=== PATIENT | female | born 1935 | race African-American/Black ===

== ENCOUNTER 2017-06-21 05:19 | Inpatient (IN) ==
[~2017-06-21 05:19] MED LIST: VANCOMYCIN INJ 1,000 MG in SODIUM CHLORIDE 0.9% 250 ML IV ONE
[2017-06-21] MEDS ORDERED: VANCOMYCIN INJ 1,000 MG in SODIUM CHLORIDE 0.9% 250 ML IV ONE (06:00)
[2017-06-21] MEDS ORDERED: ceFAZolin 1,000 MG in SYRINGE 1 EACH IV ONE (06:00)
[2017-06-21] MEDS ORDERED: LACTATED RINGERS 1,000 ML IV SCH (07:00)
[2017-06-21] MEDS ORDERED: TRANEXAMIC ACID 1,000 MG/10 ML VIAL IV ONE (07:04)
[2017-06-21] MEDS ORDERED: VANCOMYCIN 1,000 MG VIAL ONE (07:21)
[2017-06-21] MEDS ORDERED: ceFAZolin 1,000 MG VIAL ONE (07:21)
[2017-06-21] MEDS ORDERED: ONDANSETRON 4 MG/2 ML VIAL IV PRN ×2 (08:29→10:13)
[2017-06-21] MEDS ORDERED: MAGNESIUM HYDROXIDE SUSP 30 ML UDCUP PO PRN (08:29)
[2017-06-21] MEDS ORDERED: ZALEPLON 5 MG CAPSULE PO PRN (08:29)
[2017-06-21] MEDS ORDERED: diphenhydrAMINE CAP 25 MG CAPSULE PO PRN (08:29)
[2017-06-21] MEDS ORDERED: HYDROmorphone 2 MG/1 ML VIAL IV PRN ×2 (08:29)
[2017-06-21] MEDS ORDERED: OXYCODONE HCL 15 MG PO SCH (08:30)
[2017-06-21] MEDS ORDERED: BACITRACIN OINT 0.9 GM PACK TOP ONE (09:29)
[2017-06-21] MEDS ORDERED: fentaNYL 100 MCG/2 ML VIAL ONE (10:05)
[2017-06-21] MEDS ORDERED: PROPOFOL 200 MG/20 ML VIAL IV ONE (10:06)
[2017-06-21] MEDS ORDERED: MIDAZOLAM 2 MG/2 ML VIAL ONE (10:06)
[2017-06-21] MEDS ORDERED: ONDANSETRON 4 MG/2 ML VIAL ONE ×2 (10:06→10:08)
[2017-06-21] MEDS: HYDROmorphone 2 MG/1 ML VIAL IV PRN ×4 (10:07→10:39)
[2017-06-21] MEDS ORDERED: KETOROLAC 30 MG/1 ML VIAL ONE (10:07)
[2017-06-21] MEDS ORDERED: ACETAMINOPHEN 1,000 MG/100 ML VIAL IV ONE (10:07)
[2017-06-21] MEDS ORDERED: HYDROmorphone 2 MG/1 ML VIAL ONE (10:08)
[2017-06-21 10:30] LABS: Apearance,Urine CLEAR (Clear); Bilirubin,Urine Negative (Negative); Blood, Urine Negative (Negative); Glucose,Urine (UA) Negative (Negative); Ketones,Urine Negative (Negative); Mucus,Urine Occasional /LPF (Occasional); Nitrite,Urine Negative (Negative); Protein,Urine Negative; RBC,Urine 1 /HPF (0-4); Urine Color Straw (Yellow); Urine Specific Gravity 1.005 (1.001-1.035); Urine Urobilinogen < 2.0 EU/DL (0.2-1.0); WBC,Urine <1 /HPF (0-6)
[2017-06-21] MEDS ORDERED: MORPHINE 10 MG/1 ML VIAL ONE (10:50)
[2017-06-21] MEDS ORDERED: MORPHINE 10 MG/1 ML VIAL IV ONE (10:55)
[2017-06-21] MEDS: ATORVASTATIN 20 MG TABLET PO SCH (12:26)
[2017-06-21] MEDS: GABAPENTIN 100 MG CAPSULE PO SCH ×3 (12:26→20:38)
[2017-06-21] MEDS: DOCUSATE SODIUM 100 MG CAPSULE PO SCH ×2 (12:26→20:38)
[2017-06-21] MEDS: TOLTERODINE LA 2 MG CAPSULE PO SCH (12:26)
[2017-06-21] MEDS: LACTATED RINGERS 1,000 ML IV SCH ×2 (12:46→16:16)
[2017-06-21] MEDS: KETOROLAC 15 MG/1 ML VIAL IV SCH ×2 (12:47→18:12)
[2017-06-21] MEDS: ACETAMINOPHEN 500 MG TABLET PO SCH ×2 (12:51→18:13)
[2017-06-21] MEDS: ceFAZolin 2,000 MG in PREMIX 1 EACH IV SCH ×2 (12:58→20:37)
[2017-06-21] MEDS: FONDAPARINUX 2.5 MG/0.5 ML SYRINGE SUBCUT SCH (20:38)
[2017-06-22] MEDS: ACETAMINOPHEN 500 MG TABLET PO SCH ×2 (00:16→05:45)
[2017-06-22] MEDS: KETOROLAC 15 MG/1 ML VIAL IV SCH ×2 (00:17→05:48)
[2017-06-22] MEDS: LACTATED RINGERS 1,000 ML IV SCH (00:21)
[2017-06-22 05:35] LABS: Basophils % 0.3 % (0.0-0.8); Eosinophils # 0.4 10*3/uL (0.0-0.87); Eosinophils % 5.7 % (0.00-10.9); Hematocrit 33.4 VOL% (35.7-47.0); Hemoglobin 10.3 GM/DL (12.0-16.0); Immature Granulocytes % 0.4 %; Immature Granulocytes Absolute 0.03 #; Lymphocytes % 13.5 % (21.3-54.2); Mean Corpuscular HGB Conc 30.8 GM/DL (32-36); Mean Corpuscular Hemoglobin 28 PG (27-34); Mean Corpuscular Volume 90.8 FL (87-102); Monocytes # 0.7 10*3/uL (0.11-0.8); Monocytes % 9.3 % (1.7-12.7); Neutrophils # 5.1 10*3/uL (1.4-7.4); Neutrophils % 70.8 % (38.7-73.9); Platelet Count 173 T/CUMM (130-400); Red Blood Count 3.68 MC/CUMM (3.8-5.5); Red Cell Distribution Width 15.5 % (9.3-17.3); White Blood Count 7.2 T/CUMM (4-12)
[2017-06-22 06:03] LABS: Calcium 7.9 MG/DL (8.5-10.1); Osmolality,Calculated 285.8 MOS/KG (273-304)
[2017-06-22] MEDS: GABAPENTIN 100 MG CAPSULE PO SCH ×3 (09:12→20:14)
[2017-06-22] MEDS: DOCUSATE SODIUM 100 MG CAPSULE PO SCH ×2 (09:12→20:14)
[2017-06-22] MEDS: TOLTERODINE LA 2 MG CAPSULE PO SCH (09:12)
[2017-06-22] MEDS: ATORVASTATIN 20 MG TABLET PO SCH (09:12)
[2017-06-22] MEDS: CELECOXIB 200 MG CAPSULE PO SCH (15:14)
[2017-06-22] MEDS: oxyCODONE IR 5 MG TABLET PO PRN ×2 (16:58→20:14)
[2017-06-22] MEDS: FONDAPARINUX 2.5 MG/0.5 ML SYRINGE SUBCUT SCH (20:14)
[2017-06-23] MEDS: oxyCODONE IR 5 MG TABLET PO PRN ×6 (01:45→23:19)
[2017-06-23 06:08] LABS: Basophils % 0.4 % (0.0-0.8); Eosinophils # 0.6 10*3/uL (0.0-0.87); Eosinophils % 6.8 % (0.00-10.9); Hematocrit 32.8 VOL% (35.7-47.0); Hemoglobin 10.1 GM/DL (12.0-16.0); Immature Granulocytes % 0.4 %; Immature Granulocytes Absolute 0.03 #; Lymphocytes # 1.2 10*3/uL (1.4-4.0); Mean Corpuscular HGB Conc 30.8 GM/DL (32-36); Mean Corpuscular Hemoglobin 28 PG (27-34); Mean Corpuscular Volume 90.1 FL (87-102); Mean Platelet Volume 12.1 FL (9.6-12.0); Monocytes # 0.8 10*3/uL (0.11-0.8); Monocytes % 9.4 % (1.7-12.7); Neutrophils # 5.6 10*3/uL (1.4-7.4); Platelet Count 161 T/CUMM (130-400); Red Blood Count 3.64 MC/CUMM (3.8-5.5); Red Cell Distribution Width 15.7 % (9.3-17.3); White Blood Count 8.2 T/CUMM (4-12)
[2017-06-23] MEDS: TOLTERODINE LA 2 MG CAPSULE PO SCH (08:56)
[2017-06-23] MEDS: DOCUSATE SODIUM 100 MG CAPSULE PO SCH ×2 (08:56→21:21)
[2017-06-23] MEDS: ATORVASTATIN 20 MG TABLET PO SCH (08:56)
[2017-06-23] MEDS: CELECOXIB 200 MG CAPSULE PO SCH (08:56)
[2017-06-23] MEDS: GABAPENTIN 100 MG CAPSULE PO SCH ×3 (08:57→21:21)
[2017-06-23] MEDS: FONDAPARINUX 2.5 MG/0.5 ML SYRINGE SUBCUT SCH (21:20)
[2017-06-24] MEDS: oxyCODONE IR 5 MG TABLET PO PRN ×2 (04:31→08:14)
[2017-06-24] MEDS: TOLTERODINE LA 2 MG CAPSULE PO SCH (08:13)
[2017-06-24] MEDS: DOCUSATE SODIUM 100 MG CAPSULE PO SCH (08:13)
[2017-06-24] MEDS: CELECOXIB 200 MG CAPSULE PO SCH (08:13)
[2017-06-24] MEDS: ATORVASTATIN 20 MG TABLET PO SCH (08:14)
[2017-06-24] MEDS: GABAPENTIN 100 MG CAPSULE PO SCH (08:14)
[2017-06-24 11:04] VITALS: BP 107/60
[2017-06-24] MEDS ORDERED: BISACODYL 5 MG TABLET PO ONE (11:27)
== END 2017-06-24 12:30 | disposition swing bed (61) | DRG 470 ==
LOC: N.OR 05:19 → N.SDSINP 05:20 → N.3E 08:29
PROVIDERS: ADMIT Orthopaedic Surgery; ATTEND Orthopaedic Surgery